=== PATIENT | male | born 1955 | race Hispanic/Latino ===

== ENCOUNTER → 2017-11-03 | Outpatient (CLI) | payer BC ==
[~2017-11-03] MED LIST: IOPAMIDOL 370 MG/ML 200 ML INFUS..BTL INJ ONE; SODIUM CHLORIDE 0.9% 50ML 50 ML ONE
[2017-11-03 13:15] LABS: BLOOD UREA NITROGEN 17 mg/dL (7-26); BUN/CREATININE RATIO 18 (6-25); CREATININE, SERUM 0.93 mg/dL (0.72-1.25); EST GLOMERULAR FILTRATION RATE > 60 ML/MIN (60-)
--- NOTE | 2017-11-04 09:26 | Diagnostic Imaging Report ---
Examination:CT SOFT TISSUE NECK WITH CONTRAST History: Right neck mass with pain and discomfort. Comparison studies: None Technique: Axial images from the skull base to the thoracic inlet Coronal and sagittal reformatted images. Intravenous contrast: 100mL of Isovue 370 Findings: Soft tissues: No abnormalities. Aerodigestive tract: There is an asymmetric area of enhancement in the right lingual tonsil which infiltrates the inferior aspect of the anterior tonsillar pillar. Prominence of the lingual tonsil, which effaces the valleculae. Lymph nodes: There are several right II (suprahyoid) adenopathy. The largest of which is located in right IIb and demonstrates a vague area of central hypodensity. There is a single homogeneous 1.2 cm node in the left IIa, concerning for metastatic node given findings at the tongue base and right suprahyoid neck. Vessels: Arteries and veins are patent. Atherosclerotic calcification of the aortic arch. Mixed plaque at the left carotid bifurcation results in stenosis of the proximal cervical segment of the left internal carotid artery. If clinically indicated, an ultrasound may be obtained for further evaluation. Thyroid gland: Normal in size and homogeneous. Submandibular glands: Normal in size and homogeneous. Parotid glands: Normal in size and homogeneous. Orbits: No abnormalities. Paranasal sinuses: Clear. Temporal bones: No abnormalities. Skull base and facial bones: Intact. Cervical spine: Moderate left facet arthropathy at C2-C3 without foraminal stenosis. No disc bulge or herniation or foraminal or canal stenosis. 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 Signed by: Dr. Felisha Clements M.D. on 11/04/2017 9:22 AM
== END | disposition home or self-care (01) ==
LOC: CT 12:30
PROVIDERS: ATTEND Surgery
DX: C01 Malignant neoplasm of base of tongue (principal); C77.0 Secondary and unspecified malignant neoplasm of lymph nodes of head, face and neck
CPT/HCPCS: 36415; 70491; 82565; 84520; Q9967